=== PATIENT | male | born 1990 ===

== ENCOUNTER 2023-01-08 00:23 | Day surgery (SDC) | payer OTHER, SELFPAY ==
[2023-01-08] VITALS (17 sets, daily range): BP systolic 93–134; BP diastolic 65–85; PULSE 76–90; RESP 14–20; TEMP 36.4–37.1; O2SAT 93–100; BMI 37.4
--- NOTE | 2023-01-08 | PATH_ITS ---
[facility] Accession Number: [id number] No. of containers..01 Tissue . 01 Material submitted: . testis - RIGHT TESTICLE AND CORD . 01 Diagnosis: Right Testicle and Spermatic Cord, Orchitectomy: Extensive recent hemorrhage involving soft tissue of spermatic cord, hilum, and adjacent to epididymis. Interstitial edema of testicular parenchyma. Negative for apparent necrosis. Negative for neoplasia. MRV 01/17/2023 1712 Local . 01 Electronically signed: . Leonie Gibson MD, Pathologist NPI- [id number] . 01 Gross description: . The specimen is received in formalin labeled with the patient's name, , and R testicle and cord, and consists of a smith, smooth testis measuring 4.9 x 3.5 x 3.0 cm with attached hemorrhagic soft tissue and cord measuring 9.2 x 3.4 x 3.2 cm. The specimen weighs 92 g. The spermatic cord margin is inked blue, and the remaining external surface is inked orange. Bivalving reveals grossly unremarkable testicular parenchyma that diffusely passes the string test. The epididymis measures 3.2 x 0.8 x 0.4 cm and has a grossly normal cut surface. The surrounding soft tissue is diffusely hemorrhagic with no lesions grossly identified. Skin Pass Operator sections are submitted as follows: A1: Spermatic cord margin en face. A2: Additional spermatic cord. A3: Testicular parenchyma, epididymis, and hemorrhagic soft tissue. A4: Testicular parenchyma to hemorrhagic soft tissue. ([id number]) Additional sections of testicular parenchyma are submitted in cassettes A15-A9. ([id number]) /[facility] 01/14/2023 1031 Local . 01 Pathologist provided ICD-10: N50.1 . 01 CPT . 814846 Specimen Comment: A courtesy copy of this report has been sent to [phone] Performed at: 01 [facility] [address] [place] [address], [place], [place] [id number] MD Tao Ibrahim MD Phone: [phone]
--- NOTE | 2023-01-08 00:24 | DI.US.S_ITS ---
PROCEDURE: US SCROTUM INDICATIONS: vasectomy today, significant swelling, pain TECHNIQUE: Real-time scanning was performed of the scrotum and testicles, with image documentation. Color and pulse Doppler interrogation was performed of both testicles. COMPARISON: [facility], US, US SCROTUM, 01/07/2023, 22:10. FINDINGS: Right: Testicle is normal in size at 3.2 x 2.7 x 2 cm, and heterogeneous and hypoechoic in echotexture. It is poorly seen. However, it is better seen on the current study than on the prior. There is a right scrotal hematoma that measures 7.6 x 7.4 x 4.3 cm. There is a right groin hematoma seen that measures 6.4 x 3.7 x 4.1 cm. The hematomas are seen immediately adjacent to one another and are difficult to distinguish from one another. The right epididymis is not seen. There is a hypoechoic cleft measuring 2.4 x 0.9 x 0.7 cm seen along the scrotal incision. Left: Testicle is normal in size at 4.6 x 3.1 x 2.7 cm, and homogeneous in echotexture. Epididymis is normal in overall size and morphology. No hydrocele or varicoceles. Overlying scrotal skin is normal in thickness. Doppler: No vascular flow is seen to the right testicle. IMPRESSION: No vascularity is seen to the right testicle. It is better seen on the current study than on the prior outside ultrasound, yet it is hypoechoic and heterogeneous. Testicular torsion is presumed, although differential diagnosis includes compression from the prominent hematomas. Large hematomas are seen involving the right scrotum and right groin. Note: Case discussed by telephone with Dr. Bryant at 12:46 a.m. [place] time on January 08, 2023. Dictated by: Chilo Long M.D. on 01/08/2023 at 0:40 Approved by: Chilo Long M.D. on 01/08/2023 at 0:48
--- NOTE | 2023-01-08 01:47 | ED.MALEGU ---
HPI - Male Genitourinary General Chief complaint: Urogenital-Male Stated complaint: Painful and swollen testicle Time Seen by Provider: 01/08/23 00:23 Source: patient, EMS, RN notes reviewed and old records reviewed Mode of arrival: EMS History of Present Illness HPI Narrative: 32-year-old male, otherwise healthy presents from an outside facility for evaluation of postsurgical hematoma. He had a vasectomy earlier in the day and over the course of the day developed increasing pain and swelling of his scrotum. He is not dizzy nor weak or lightheaded. Denies any fever or chills. Denies any difficulty with urinating or bowel movements. Presented initially to [facility] and ultrasound demonstrates hematoma and compromise flow to right testicle. They do not have Urology on-call. Called here to discuss with our urologist who requested ED to ED transfer Related Data Allergies Allergy/AdvReac Type Severity Reaction Status Date / Time No Known Drug Allergies Allergy Verified 01/08/23 00:25 Review of Systems Review of Systems Narrative: GENERAL: Denies chills, fatigue, malaise, fever, sweats. HEENT: Denies sinus pain, ear pain, sore throat, difficulty swallowing, dizziness. RESPIRATORY: Denies dyspnea, cough, wheezing, hemoptysis, sputum. CARDIOVASCULAR: Denies chest pain, palpitations, orthopnea, edema, GASTROINTESTINAL: Denies nausea, vomiting, abdominal pain, diarrhea, constipation, melena. : See HPI MUSCULOSKELETAL: denies weakness, joint pain, or bony pain SKIN: Denies rash, skin lesions, or other NEUROLOGIC: Denies weakness, headache, numbness, change in speech, confusion, seizures, incoordination. PSYCHIATRIC: No concerning psychosocial issues. 12 point review of systems is negative except for those stated above Patient History Social History Smoking Status: Never smoker Smoking Status: Never smoker Substance Use Type: does not use Exam Narrative Exam Narrative: GEN: AOx3 and in mild distress EYES: Pupils are equal, round, and reactive to light and accommodation. Extraoccular muscles are intact bilaterally. There is no subconjunctival hemorrhage or exudate. CHEST: Lungs are clear to auscultation bilaterally and free of wheezes, rales, or rhonchi. Heart rate is regular rhythm, there are no murmurs, clicks, rubs, or gallops. There is no chest wall tenderness. ABD: Abdomen is soft and nontender. There is no guarding or rebound. Bowel sounds are normal in all 4 quadrants. There is no mass or organomegaly. : Tremendous swelling to scrotum, largely on the right extending up to groin EXT: Full painless ROM of all extremities with no loss of sensation or strength. SKIN: Warm, pink, and dry. No erythema or rash Initial Vital Signs Initial Vital Signs: Vital Signs Pulse Rate 84 01/08/23 00:20 Pulse Oximetry 97 01/08/23 00:20 Course Orders Ordered: ED Orders 01/08/23 00:24 US scrotum Stat Cefazolin Sodium/Dextrose (Ancef) 100 mls @ 200 mls/hr IV NOW ONE Stop: 01/08/23 02:41 Last Admin: 01/08/23 02:22 Dose: 200 mls/hr Documented By: Consultations Consultation #1: Dr. Long (Radiology) called with critical findings noting lack of flow to right testicle Consultation #2: Matt Loomis (Urology) will see patient at bedside and take to OR Vital Signs Vital signs: Vital Signs - 8 hr 01/08/23 00:22 01/08/23 00:20 01/08/23 00:22 Temperature 98.7 F Pulse Rate 90 84 90 Respiratory Rate 16 Blood Pressure 134/83 Pulse Oximetry 97 97 96 Oxygen Delivery Method Room Air 01/08/23 00:22 01/08/23 00:30 01/08/23 00:30 Temperature Pulse Rate 82 Respiratory Rate Blood Pressure 134/83 125/75 Pulse Oximetry 95 Oxygen Delivery Method 01/08/23 01:00 01/08/23 01:01 01/08/23 01:01 Temperature Pulse Rate 83 83 Respiratory Rate Blood Pressure 95/66 Pulse Oximetry 94 96 Oxygen Delivery Method 01/08/23 01:30 01/08/23 01:30 01/08/23 02:00 Temperature Pulse Rate 76 Respiratory Rate Blood Pressure 105/68 122/72 Pulse Oximetry 94 Oxygen Delivery Method 01/08/23 02:00 Temperature Pulse Rate 80 Respiratory Rate Blood Pressure Pulse Oximetry 97 Oxygen Delivery Method MDM - Male Genitourinary MDM Narrative Medical decision making narrative: [32] year old patient presents with scrotal pain and outside imaging suggesting lack of flow to right testicle Multiple etiologies for patient's symptoms considered including, but not limited to: [Torsion versus compression from hematoma versus surgical complication including involvement of testicular artery versus other] Prior Charts reviewed in our EMR Primary Historian: patient Imaging reviewed: Ultrasound shows large hematoma and lack of flow to right testicle Consultations: Dr. Loomis (urology) see above Patient with recent vasectomy has large hematoma and lack of flow to right testicle, needs OR for surgical exploration and likely orchiectomy Discharge Plan Departure Patient Disposition: Admitted as Observation Clinical Impression: Hematoma of testis, Testicular torsion Admit Date/Time: 01/08/23 02:21 Admit Provider: Keyur Loomis
[2023-01-08] MEDS: CEFAZOLIN 2 GM/100 ML PREMIX 100 ML IV (02:22)
--- NOTE | 2023-01-08 02:24 | P.CONS_ITS ---
History of Present Illness Consult details Date Patient Seen: 01/08/23 Time Patient Seen: 02:24 Chief complaint: Scrotal hematoma/avascular testicle Reason for consult: Complication of vasectomy performed elsewhere scrotal hematoma Requesting provider: Lionel Bryant Narrative: This 32-year-old male had a vasectomy earlier today at about 3:00 a.m. performed elsewhere. He was sent home and developed scrotal swelling and pain on the right side which at 1st he thought was normal. The pain and size of the hematoma continued to increase to the point where he felt it was no longer normal. He reports this occurred over a period of several hours. He then presented to the emergency room at [facility], I believe between 6 and 8:00 p.m., and was evaluated. There he had an ultrasound which showed a large seema edith and no flow by report to his right testicle. It is reported that the urologist who performed the vasectomy was ?unavailable[place] Therefore he was transferred to the emergency department here at [facility] for evaluation where scrotal ultrasound was repeated this again showed a large hematoma and according to the radiologist more clearly demonstrated an avascular or testicle with no blood flow. In conversation with the patient he has no bleeding tendencies and has had none sent in the past. He denies nausea, vomiting and reports his pain level at about a 5. Scrotal exploration with evacuation of hematoma and likely orchiectomy given the lack of flow to the testicle were discussed with the patient procedure risks and alternatives his questions were answered and he wishes to proceed. The risks to include but not limited to increased bleeding, infection, injury to surrounding structures, non wound healing, loss of his testicle, need for repeat operation, potential for drain, unforeseen and unpredictable complications in sequelae. Patient voices understanding and acceptance of risks and wishes to proceed. Patient denies prior surgery, no known drug allergies, no regular medications at home and as noted above no prior bleeding tendencies. Meds Home Medications and Allergies Allergies Allergy/AdvReac Type Severity Reaction Status Date / Time No Known Drug Allergies Allergy Verified 01/08/23 00:25 Review of Systems Review of Systems ROS: Yes All systems reviewed with the patient and are negative except as otherwise documented (And problem list) Exam Vital Signs (past 8 hours): - 01/08/23 00:22 01/08/23 00:20 01/08/23 00:22 Temperature 98.7 F Pulse Rate 90 84 90 Respiratory Rate 16 Blood Pressure 134/83 Pulse Oximetry 97 97 96 Oxygen Delivery Method Room Air 01/08/23 00:22 01/08/23 00:30 01/08/23 00:30 Temperature Pulse Rate 82 Respiratory Rate Blood Pressure 134/83 125/75 Pulse Oximetry 95 Oxygen Delivery Method 01/08/23 01:00 01/08/23 01:01 01/08/23 01:01 Temperature Pulse Rate 83 83 Respiratory Rate Blood Pressure 95/66 Pulse Oximetry 94 96 Oxygen Delivery Method 01/08/23 01:30 01/08/23 01:30 01/08/23 02:00 Temperature Pulse Rate 76 Respiratory Rate Blood Pressure 105/68 122/72 Pulse Oximetry 94 Oxygen Delivery Method 01/08/23 02:00 Temperature Pulse Rate 80 Respiratory Rate Blood Pressure Pulse Oximetry 97 Oxygen Delivery Method Oxygen Delivery Method Room Air Narrative Exam Narrative: General: This is an awake, alert, oriented male with tattoos who appears remarkably comfortable. Lungs: Clear full and equal Cardiovascular exam: Regular rate and rhythm without murmur Abdominal exam: Soft, nontender, without mass or hepatosplenomegaly. Genitourinary exam: Right hemiscrotal enlargement with purplish discoloration and extension of mass effect into the right inguinal area. There is a punctate incision in the right lateral scrotum in the left lateral scrotum there is a punctate incision anteriorly. The penis is not observed and is distorted. The hematoma or discoloration extends to the penile skin again this is quite massive enlargement it is tender though not exquisitely so. This appears consistent with a very large hematoma. There was no active oozing from either of the incision sites Objective Imaging Scrotal ultrasound: My impression: Scrotal ultrasound is reviewed and appears to show large scrotal hematoma no blood flow to the right testicle and what appears to be normal blood flow to the left testicle. Radiologist's impression: Please refer to the radiology report [facility] Medical History (Updated 01/08/23 @ 02:45 by Keyur Loomis MD) Scrotal hematoma Vascular disorder of testicle Surgical History (Updated 01/08/23 @ 02:45 by Keyur Loomis MD) Status post vasectomy Tobacco & Substance Use Smoking Status: Never smoker Assessment & Plan Assessment and plan (1) Scrotal hematoma: Problem details: Right side Status: Acute (2) Vascular disorder of testicle: Problem details: No blood flow to right testicle Status: Acute (3) Status post vasectomy: Problem details: Patient is seen for complication of vasectomy Status: Acute Plan Assessment and plan: Patient was profound hematoma after vasectomy right side no blood flow to testicle. Plan scrotal exploration with evacuation of hematoma and given the appearance of the ultrasound probable orchiectomy. Patient will be covered with appropriate antibiotics and will likely be discharged to home. Time Spent With Patient Time with patient: 30 to 49 minutes with 50% spent counseling/coordinating care
--- NOTE | 2023-01-08 02:47 | PM.PREOP ---
Pre-operative Note COVID-19 COVID-19 status: Not tested Criteria for continued procedure: Delay expected to result in less-positive ultimate med/surg outcome and Non-surgical alternatives not available or appropriate per current SOC Interval Note History & Physical reviewed/Exam performed by Physician: Yes Changes to H&P: No
[2023-01-08] MEDS: CEFAZOLIN VIAL 1 GM in SODIUM CHLORIDE 0.9% 100 ML IV (03:10)
--- NOTE | 2023-01-08 03:18 | SUR.OPER ---
Supine on padded OR bed, head on pillow, arms secured on padded arm boards at <90 degrees abduction, legs uncrossed, safety belt at thigh, tape over blanket over lower legs.
[2023-01-08] MEDS: BACITRACIN OINT 0.9 GM PCKT 1 APPLIC TOP (03:33)
[2023-01-08] MEDS: BUPIVACAINE 0.25% (PF) VIAL 30 ML INJ (03:33)
[2023-01-08] MEDS: BACITRACIN 28 GM OINT 1 APPLIC TOP (04:35)
--- NOTE | 2023-01-08 04:41 | P.OP_ITS ---
Procedure & Clinicians Procedure: Right scrotal exploration with evacuation of hematoma and right orchiectomy. Same procedure as scheduled: Yes Indications: This 32-year-old male had undergone a vasectomy earlier today elsewhere. After this he developed increasing right hemiscrotal size and pain and presented to the emergency department at [facility] where he was evaluated and found to have a very large scrotal hematoma and no blood flow to the right testes by report. He was then transferred to [facility] Emergency Department where he was evaluated again had ultrasound which showed again the very large hematoma and even more clearly an avascular ischemic testicle. He is brought to the operating room for scrotal exploration evacuation of hematoma and as it turns out. Surgeon: Keyur Loomis Click Yes if Unassisted: Yes Anesthesia Type: General Operative Notes Findings: Findings: At surgery the patient had a markedly enlarged right hemiscrotum which was approximately the size of a small egg plant. It was violaceous in color consistent with hematoma. The bulge extended well into the right inguinal area. It pushed the penis to the left and force the skin forward such that the shaft skin could not be retracted. The testicle on the left could be palpated and was palpated weekly normal. Approximately 550 cc (conservatively) of clot was evacuated. The defect in the cord was identified and the cord itself was filled with clot violaceous. The testicle was dusky and soft and by Doppler there was no pulsatile blood flow in the testicle hilum epididymis or up the cord that was detected by pencil Doppler. The exact site of bleeding was not specifically identified. And the cord was divided proximal to the defect from the vasectomy. After copious irrigation and evacuation of clot there was no obvious active bleeding. The dartos and scrotal wall was thickened with blood and or hematoma. And at the end of the procedure all clot had been irrigated and evacuated from the scrotum and the inguinal area. The inguinal area was significantly decompressed. Closure Type: primary Specimen(s): other (Right testicle and cord) Prosthetic devices, grafts, tissues, transplants, or devices: None Estimated Blood Loss (mL): 550 Blood products transfused: none Procedure in detail: Procedure in detail: After informed consent was obtained, the patient was identified and brought to the operating room where he was placed in a supine position on the table and anesthesia was induced and maintained. After assuring an adequate level of anesthesia the patient was shaved, prepped, draped in a sterile fashion for scrotal exploration. After prepping, draping, time-out and ensuring an adequate level of anesthesia a transverse incision was made in the right hemiscrotum through the layers of the thickened dartos down into the scrotum. At this point clot under pressure was exuded. The incision was exten ded and clot was evacuated by suction manual break up and manual expulsion. Again extending the finger up into the inguinal area to break up and express the clot. This was then irrigated with 2 L of saline. The scrotum and inguinal area cord were then explored. The defect from the vasectomy was identified. At this point Doppler was employed and the cord testicle were interrogated with the pencil tip Doppler no pulsatile flow was noted. The tunica vaginalis was then opened to gain better access to the testes there was bloody fluid within the tunica vaginalis. Again the epididymis and cord were dusky in color very soft and again spending extensive time going into the hilum of the testicle the epididymis the distal cord no pulsatile blood flow was noted. Again the cord was quite thickened and discolored with blood. At this point it was clear that the testicle was nonviable and the gubernaculum was divided. The cord was dissected out. Once again using the Doppler was checked for arterial blood flow none was noted. A Pean placed across the cord. Prior to this a cord block with 0.25% plain Marcaine was performed. A 2nd clamp was placed just toward the testicle and the cord was divided. The vas was then dissected free and ligated with a 0 silk. This was from the vascular bundle. Then using a 0 silk suture ligature the stump of the cord was ligated. A second ligating 0 silk was placed just distal to the suture ligature. With this the clamp was removed there was no active bleeding. The wound was once again irrigated with another L of saline and attention was turned to closure. The inner layer of the dartos was reapproximated with a running 2-0 Vicryl. The dartos in a subcuticular fashion was reapproximated with a running 2-0 Vicryl. Skin edges w ere reapproximated with interrupted vertical mattress of 2-0 chromic. Skin edges were then infiltrated with 0.25% plain Marcaine. Bacitracin Telfa fluffs and scrotal support were then applied patient was awakened having tolerated the procedure well. There were no complications the patient is transferred to the postanesthesia care unit for recovery to be discharged to home. Complications: none Post-operative Condition: stable Disposition: PACU Plan for aftercare: Patient to be discharged to home. The patient certainly can follow-up with me in approximately 10 days.
[2023-01-08] MEDS: OXYCODONE IR 5 MG TABLET PO (05:15)
[2023-01-08] MEDS: ACETAMINOPHEN 325 MG TABLET 650 MG PO (05:16)
[2023-01-08] MEDS: ONDANSETRON 4 MG/2 ML INJ IV (05:17)
[2023-01-08] MEDS: LACTATED RINGERS 1,000 ML 42 ML IV (05:58)
== END 2023-01-08 06:11 | disposition home or self-care (01) ==
LOC: ED 02:20 → AC 02:28 → OR 01-10 12:32
PROVIDERS: Emergency Provider Emergency Medicine; Referring Provider Emergency Medicine; Visit Provider Urology
PROC: (CPT 54520; principal; 2023-01-08 03:15)
DX: S30.22XA Contusion of scrotum and testes, initial encounter (principal); N50.89 Other specified disorders of the male genital organs; Z98.52 Vasectomy status
CPT/HCPCS: 54520; 76870; 93975; 99222; 99282; J0330; J0690; J2405; J2704; J3010

== ENCOUNTER 2023-01-27 10:47 | Emergency (ER) | payer OTHER, SELFPAY ==
[2023-01-27 11:00] VITALS: BP 131/75; PULSE 80; RESP 14; TEMP 37.1; O2SAT 99; BMI 33.0
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
[2023-01-27] MEDS: KETOROLAC 30 MG/ML VIAL IM (11:25)
[2023-01-27] MEDS: ACETAMINOPHEN 325 MG TABLET 975 MG PO (11:25)
[2023-01-27 13:20] VITALS: BP 115/70; PULSE 70; RESP 14; O2SAT 99
[2023-01-27 13:40] VITALS: BP 124/79; PULSE 80; RESP 16; TEMP 36.6; O2SAT 98
== END 2023-01-27 13:41 | disposition home or self-care (01) ==
PROVIDERS: Emergency Provider Physician Assistant; PCP Physician Assistant
DX: S43.101A Unspecified dislocation of right acromioclavicular joint, initial encounter (principal); V29.99XA Rider (driver) (passenger) of other motorcycle injured in unspecified traffic accident, initial encounter
CPT/HCPCS: 73030; 96372; 99283; 99284; J1885